=== PATIENT | male | born 1990 | race Caucasian/White ===

== ENCOUNTER 2016-11-27 05:27 | Emergency (ER) | payer MEDICARE ==
[2016-11-27 08:40] LABS: HEMOGLOBIN 17.5 gm/dl (14.0-17.5); RED BLOOD COUNT 5.52 M/UL (4.20-5.50); WHITE BLOOD COUNT 9.4 K/UL (4.5-11.0)
[2016-11-27 08:54] LABS: BUN/CREATININE RATIO 11 (0-10)
== END 2016-11-27 10:43 | disposition home or self-care (01) ==
LOC: ER1 05:27
PROVIDERS: Emergency Medicine
DX: R10.9 Unspecified abdominal pain (principal); F17.210 Nicotine dependence, cigarettes, uncomplicated; Z88.0 Allergy status to penicillin
CPT/HCPCS: 36415; 80053; 81001; 82150; 83690; 85025; 96374; 99284; J1885; J7030